=== PATIENT | male | born 1955 | race Caucasian/White ===

== ENCOUNTER 2023-03-31 09:36 | Inpatient (IN) | payer MEDICARE, MEDICAID, SELFPAY ==
[2023-03-29 07:46] VITALS: BMI 19.8
[2023-03-31] VITALS (17 sets, daily range): BP systolic 109–190; BP diastolic 60–103; PULSE 72–102; RESP 12–21; TEMP 35.8–36.7; O2SAT 95–99; BMI 19.8
--- NOTE | 2023-03-31 | DI.RAD.S_ITS ---
PROCEDURE: XR LUMBAR SPINE 2-3V INDICATIONS: TLIF L3-4, L4-5, L5-S1 TECHNIQUE: 3 views of the lumbar spine were acquired. COMPARISON: [facility], , -SPINE 2-3 VIEWS, 06/12/2008, 11:11. FINDINGS: Intraoperative fluoroscopic views of pedicular screw and rony fixation. IMPRESSION: Intraoperative fluoroscopic views. Dictated by: Toribio Sanchez M.D. on 03/31/2023 at 16:52 Approved by: Toribio Sanchez M.D. on 03/31/2023 at 16:53
[2023-03-31] MEDS: LACTATED RINGERS 1,000 ML 42 ML IV ×2 (11:12→14:37)
--- NOTE | 2023-03-31 11:27 | PM.PREOP ---
Pre-operative Note COVID-19 Criteria for continued procedure: Expected advancement of disease process, Possibility delay results in more complex future surgery or treatment, Increased loss of function, Continuing or worsening of significant or severe pain, Deterioration of the patient's condition or overall health and Delay expected to result in less-positive ultimate med/surg outcome Interval Note History & Physical reviewed/Exam performed by Physician: Yes Changes to H&P: No
[2023-03-31] MEDS: OXYCODONE IR 5 MG TABLET PO ×3 (12:02→18:15)
[2023-03-31] MEDS: CYCLOBENZAPRINE 10 MG TABLET 5 MG PO ×2 (12:02→20:27)
[2023-03-31] MEDS: CEFAZOLIN 2 GM/100 ML PREMIX 100 ML IV ×3 (12:36→22:39)
--- NOTE | 2023-03-31 13:08 | SUR.OPER ---
Prone on spine table, head in foam head support, padded chest and pelvic supports, gel pad at knees, lower legs supported by pillows; nipples, genitalia and toes free of pressure, arms secured on foam padded arm boards at <90 degrees abduction. Tape over blanket at thigh secured to table.
[2023-03-31] MEDS: ACETAMINOPHEN IV 1,000 MG/100 ML VIAL 400 MG IV (13:10)
[2023-03-31] MEDS: BUPIVACAINE LIPOSOME 266 MG/20 ML VIAL INJ (13:47)
[2023-03-31] MEDS: BUPIVACAINE 0.25% (PF) 60 ML, EPINEPHrine 0.15 MG INJ (13:51)
--- NOTE | 2023-03-31 16:48 | P.OP_ITS ---
Operative Date/Time/Diagnoses Date of procedure: 03/31/23 Time of procedure: 12:15 Pre-op diagnosis: 1. Lumbar scoliosis 2. Lumbar spondylolisthesis 3. Lumbar spinal stenosis with neurogenic claudication Post-op diagnosis: same Procedure & Clinicians Procedure: 1. L3-4, L4-5, L5-S1 Postero-lateral and posterior interbody fusion 2. L3-4, L4-5, L5-S1 interbody cage placement. 3. L3-4, L4-5, L5-S1 decompressive laminectomy with bilateral facetecomies 4. L3-4, L4-5, L5-S1 Posterior segmental instrumentation 5. Pierpont of bone marrow from iliac crest 6. Utilization of microsurgical technique and operating microscope 7. Utilization of robotic assisted navigation Same procedure as scheduled: Yes Indications: Patient has been having chronic back pain and worsening lumbar radiculopathy and symptoms of neurogenic claudication. Patient failed multiple conservative management with worsening pain weakness and numbness in his lower extremity. Patient has been having difficulty performing activity of daily living. After discussing risks benefits of treatment options, patient elected proceed with surgery. Surgeon: Brit Eisenberg Security Assessor: Radha Marin Click Yes if Unassisted: No Anesthesia Type: General Operative Notes Closure Type: primary Specimen(s): none sent Prosthetic devices, grafts, tissues, transplants, or devices: Globus CREO MIS screws, Rise cages Applied: catheter Estimated Blood Loss (mL): 350 Blood products transfused: none Procedure in detail: Patient was seen in the preoperative area. Risks and benefits of the surgery was discussed with the patient. Informed consent was obtained from the patient and placed in the chart. Surgical site was marked. Patient was taken to the operative room. General anesthesia was administered. Prophylactic antibiotic was given to the patient less than 30 min before the incision was made. Patient was placed into a prone position on the Diallo table. Patient's back was then prepped and draped in the sterile fashion. Time-out was performed at this time. After patient was prepped and draped, patient's PSIS was palpated and marked bilaterally. Small 1 cm incision was made over the PSIS for placement of the reference probes. Two trocar was placed into the PSIS 1 on each side. The reference probe was attached to the trocar of the reference apparatus. At this time the C-arm imaging was used to confirm AP and lateral of L3-4, L4- L5, L5-S1 vertebrae and merged the C-arm imaging using the Study2gether robotic navigation system with the CT of the lumbar spine. After successful merging was completed and confirmed, skin marker was used to natalie out the skin incision using the Study2gether robotic arm. Bilateral incision was made at this time. Pre templated trajectory was used and guided using the Study2gether robotic navigation system for bilateral L3, L4, L5, S1 pedicle screw placement. This was done by using the robotic arm to guide the high-speed bur to make a cortical entry point. Next a drill was placed also using the robotic arm and guided using the navigation system drilling partially through bilateral L3, L4, L5 and S1 pedicles. Next L3, L4, L5, S1 pedicle screws it was pre templated and measured was placed onto the power driver education road instructor and inserted into the pedicles bilaterally. After all 8 screws were placed C-arm imaging was taken of both AP and lateral to confirm the placement. Excellent placement of the screws were confirmed and a matched precisely with the pre planned screw placement using the navigation system. MARs retractor was inserted using [employer] guidence. Globus MARS retractors was placed inside the incision and docked onto the L3, L4 and L5 lamina. Using microsurgical technique and operating microscope, a L3, L4, L5 laminectomy and L3-4, L4-5, L5-S1 facetectomy was performed using a Kerrison rongeur. The laminectomy and facetectomy was performed in order to decompress patient's cauda equina as well as the nerve roots exiting at the L3-4, L4-5, L5- S1 level. Patient was found have severe lateral recess and neural foramen stenosis which was fully decompressed after the laminectomy facetectomy. More than 75% of the facets were removed during the process of decompression rendering L3-4, L4-5, L5-S1 level grossly unstable and required a fusion procedure at the same time. The disc space at L3-4, L4-5, L5-S1 was identified, and a total diskectomy was performed at L3-4, L4-5, L5-S1 level. The endplates were decorticated using a rasp and shaver. The total diskectomy and decortication was performed at L3-4, L4-5, L5-S1 level in order to to accomplish a L3-4, L4-5, L5-S1 fusion. The local bone from the laminectomy and facetectomy was saved for local bone grafting. After the total diskectomy and decortication was completed, Trifecta bone graft material was combined with local bone that was harvested earlier. At this time, a separate skin is incision was made over the iliac crest. A Jamshidi needle was inserted into the iliac crest through a separate skin incision. 5 cc of bone marrow aspiration was obtained through the separate skin incision using a Jamshidi needle from the iliac crest. The bone marrow aspiration was combined with local bone and the Trifecta bone grafting material. The bone grafting material was placed into the L3-4, L4-5, L5-S1 interbody space along with a expandable cage. The cage was expanded to its maximum height using the torque limiting screwdriver. The disc preparation as well as the cage insertion were also performed under navigation guidance. After the cage was placed, AP and lateral C-arm imaging was taken to confirm placement of the cage and excellent position was confirmed. Globus MARS retractor was inserted and docked onto the L3-4, L4-5, L5-S1 posterolateral gutter on the right side. Using the power drill, posterior-l ateral decortication was performed at L3-4, L4-5, L5-S1 level until bleeding cortical bone was identified. The remaining bone grafting material was placed into the L3-4, L4-5, L5-S1 posterior lateral gutter he order to accomplish posterolateral fusion at the L3-4, L4-5, L5-S1 level. At this time the tulips were attached to the L3, L4, L5, S1 pedicle screw shanks. After measuring the length of the rods, they were inserted into the tulips of the pedicle screws and locked in place using locking caps and torque limiting screwdriver bilaterally. Total 6 caps and 2 titanium rods was used in order to complete the posterior instrumentation construct. After all the hardware was placed, and confirmed with AP and lateral C-arm imaging, the wound was then irrigated with sterile normal saline and packed with Ray-Jurgen gauze for 3 min to accomplish hemostasis. After the gauze was removed the deep fascia was closed with #1 Vicryl suture. The subcutaneous layer was closed with 2-0 Vicryl. The skin was closed with skin angela. Patient tolerated the procedure well. There were no complications. The Operation could not have been safely performed without compromising the technical result or length of the procedure, without the assistance of a skilled human resources assistant. The human resources assistant was medically necessary for proper positioning, retraction and manipulation of instruments, proper exposure, surgical preparation, and manipulation of tissue. Neuro monitoring system was used to monitor patient's neurologic status throughout entire procedure. There was no disturbance of the neural monitoring signals throughout the case. Complications: none Post-operative Condition: stable Disposition: PACU Plan for aftercare: Admit to inpatient hospital
[2023-03-31] MEDS: HYDROMORPHONE 2 MG INJ IV ×4 (17:16→17:37)
[2023-03-31] MEDS: hydrOXYzine pamoate 25 MG CAPSULE 50 MG PO (17:18)
[2023-03-31] MEDS: ACETAMINOPHEN 325 MG TABLET 650 MG PO (18:52)
[2023-03-31] MEDS: LACTATED RINGERS 1,000 ML 125 ML IV (18:52)
[2023-03-31] MEDS: HYDROMORPHONE 0.5 MG INJ IV ×3 (18:52→23:22)
--- NOTE | 2023-03-31 19:16 | PC.NURSE ---
Pt arrived from PACU at 1835, A&Ox4, hypertensive but otherwise VSS on 2L O2. C/o 8/10 pain to low back, PRN tylenol and dilaudid administered per NOV. Gauze dressing to low back c/d/i. CMS at baseline, n/t to all extremities. Lung sounds cta, bowel sounds hypoactive. Pt and family oriented to room and call light, SCDs on, bed in low position.
[2023-03-31] MEDS: TAMSULOSIN 0.4 MG CAPSULE PO (20:26)
[2023-03-31] MEDS: GABAPENTIN 400 MG CAPSULE 1200 MG PO (20:26)
[2023-03-31] MEDS: DOCUSATE 100 MG CAPSULE PO (20:27)
[2023-03-31] MEDS: OXYCODONE ER 10 MG TAB PO (20:27)
[2023-03-31] MEDS: SENNOSIDES 8.6 MG TABLET 17.2 MG PO (20:27)
[2023-03-31] MEDS: LOSARTAN 50 MG TABLET PO (20:28)
[2023-03-31] MEDS: MEMANTINE HCL 5 MG TABLET 10 MG PO (20:28)
[2023-03-31] MEDS: hydrOXYzine pamoate 25 MG CAPSULE PO (22:38)
[2023-03-31] MEDS: OXYCODONE IR 10 MG TABLET PO (22:38)
[2023-03-31] MEDS: ONDANSETRON 4 MG/2 ML INJ IV (22:47)
[2023-04-01] VITALS (7 sets, daily range): BP systolic 106–156; BP diastolic 61–84; PULSE 85–100; RESP 18–20; TEMP 35.8–36.6; O2SAT 97–100
[2023-04-01] MEDS: HYDROMORPHONE 0.5 MG INJ IV ×3 (01:49→06:16)
[2023-04-01] MEDS: LACTATED RINGERS 1,000 ML 125 ML IV (01:53)
[2023-04-01] MEDS: LEVOTHYROXINE 88 MCG TABLET PO (05:32)
[2023-04-01] MEDS: PANTOPRAZOLE DR 20 MG TABLET PO (05:32)
[2023-04-01] MEDS: OXYCODONE IR 10 MG TABLET PO (05:32)
[2023-04-01 06:24] LABS: Hematocrit 34.1 % (41-53)
--- NOTE | 2023-04-01 06:55 | PM.PNPO.1 ---
Subjective Subjective Date Patient Seen: 04/01/23 Time Patient Seen: 06:55 Interval history: Pt sitting up in bed, comfortable. Had some nausea last night upon arrival to room, but feeling better now. Has not been OOB since surgery. C/o low back pain and return of neuropathic 'boots of fire' pain to feet. Takes oxycodone 15mg TID and gabapentin 1200mg TID at baseline. Exam Vital Signs (past 8 hours): - 04/01/23 01:43 04/01/23 05:12 Temperature 97.8 F 96.4 F L Pulse Rate 94 H 100 H Respiratory Rate 20 20 Blood Pressure 106/63 120/84 Pulse Oximetry 97 100 Oxygen Flow Rate 0 0 Oxygen Delivery Method Room Air Oxygen Flow Rate 0 Narrative Exam Narrative: 5/5 strength in hip flexors, quadriceps, hamstrings, DF, PF, EHL bilaterally. Sensation to light touch intact throughout BLE. Calves soft, compressible, nontender and without palpable cords or masses. Dressing placed intraoperatively intact and with bloody drainage on left. Objective Labs 04/01/23 05:56 Labs: Laboratory Results - last 24 hr 04/01/23 05:56 Hgb 12.0 L Hct 34.1 L PFSH Medical History (Updated 04/01/23 @ 06:58 by Radha Marin PA-C) ADHD Alcoholism Anxiety Arthritis Back pain Bipolar disorder BPH (benign prostatic hyperplasia) Cancer of tonsillar fossa (~2016) Depression Difficulty swallowing Diverticulosis Eating disorder GERD (gastroesophageal reflux disease) Hearing impaired HTN (hypertension) Hypothyroid LAFB (left anterior fascicular block) Memory deficit Neuropathy Osteoarthritis Pancreatitis (1996) Psoriasis RBBB (right bundle branch block) Sciatica Surgical History (Updated 04/01/23 @ 06:58 by Radha Marin PA-C) History of carpal tunnel release History of surgery History of total left hip replacement Hx of arthroscopy of right knee Hx of bilateral cataract extraction Hx of colonoscopy Hx of cornea transplant Hx of hernia repair S/P percutaneous endoscopic gastrostomy (PEG) tube placement (05/02/19) Social History household members: spouse Smoking Status: Former smoker alcohol intake: former Assessment & Plan Post-op Assessment and plan (1) S/P lumbar fusion: Assessment and Plan narrative: Mobilize w/ PT today. Pts son is in town for the next month to help him. Anticipate discharge home in next 1-2 days depending on progress w/ PT. (2) Acute postoperative anemia due to expected blood loss: Assessment and Plan narrative: Asymptomatic, no intervention needed at this time. (3) Opioid dependence with current use: Assessment and Plan narrative: Will change meds to reflect baseline home dosing and add oxycodone as needed. Postoperative Procedures: Procedures Operation Date: 03/31/23 11:45 Actual Procedure Side Surgeon p L3-4, L4-5, L5-S1 TRANSFORAMINAL LUMBAR INTERBODY FUSION WITH POSTERIOR INSTRUMENTATION; ROBOT Brit Eisenberg MD Postoperative day: 1 Quality VTE Deep Vein Thrombosis/Pulmonary Embolism Present on Admission: No
[2023-04-01] MEDS: OXYCODONE IR 5 MG TABLET 15 MG PO ×3 (08:16→21:20)
[2023-04-01] MEDS: CEFAZOLIN 2 GM/100 ML PREMIX 100 ML IV (08:23)
[2023-04-01] MEDS: CYCLOBENZAPRINE 10 MG TABLET 5 MG PO ×3 (08:24→21:18)
[2023-04-01] MEDS: hydroCHLOROthiazide 25 MG TABLET 12.5 MG PO (08:24)
[2023-04-01] MEDS: DOCUSATE 100 MG CAPSULE PO ×2 (08:25→21:19)
[2023-04-01] MEDS: GABAPENTIN 400 MG CAPSULE 1200 MG PO ×3 (08:25→21:17)
[2023-04-01] MEDS: ACETAMINOPHEN 325 MG TABLET 650 MG PO (08:25)
[2023-04-01] MEDS: ONDANSETRON 4 MG/2 ML INJ IV ×2 (09:53→15:24)
[2023-04-01] MEDS: MEMANTINE HCL 5 MG TABLET 10 MG PO ×2 (09:53→21:17)
--- NOTE | 2023-04-01 11:15 | PT.IIE ---
Current Diagnoses Acute posthemorrhagic anemia (03/31/23) Opioid dependence, uncomplicated (03/31/23) Spondylolisthesis, lumbar region (03/31/23) Spinal stenosis, lumbar region with neurogenic claudication (03/31/23) Arthrodesis status (03/31/23) Surgery Performed Operation Date: 03/31/23 11:45 Actual Procedures p L3-4, L4-5, L5-S1 TRANSFORAMINAL LUMBAR INTERBODY FUSION WITH POSTERIOR INSTRUMENTATION; GULSHAN - Brit Eisenberg MD Surgical History (Last Updated 03/23/23 @ 12:00 by Kylie Loving RN) History of carpal tunnel release History of surgery History of total left hip replacement Hx of arthroscopy of right knee Hx of bilateral cataract extraction Hx of colonoscopy Hx of cornea transplant Hx of hernia repair S/P percutaneous endoscopic gastrostomy (PEG) tube placement (05/02/19) Medical History (Last Updated 03/29/23 @ 10:49 by Kylie Loving RN) ADHD Alcoholism Anxiety Arthritis Back pain Bipolar disorder BPH (benign prostatic hyperplasia) Cancer of tonsillar fossa (~2016) Depression Difficulty swallowing Diverticulosis Eating disorder GERD (gastroesophageal reflux disease) Hearing impaired HTN (hypertension) Hypothyroid LAFB (left anterior fascicular block) Memory deficit Neuropathy Osteoarthritis Pancreatitis (1996) Psoriasis RBBB (right bundle branch block) Sciatica Physical Therapy Inpatient Evaluation/Re-Eval M1 PT/OT-IP Prior Functional Status Start: 04/01/23 13:25 Freq: NEEDED Status: Active Protocol: Document 04/01/23 11:15 AB (Rec: 04/01/23 13:33 AB [id number]) Medical Review Prior Functional Status Medical History Reviewed Yes Communication able to make needs known Mobility and Gait pt stated that he is modified independent with all mobilities without AD but occasional use of SPC indoors; uses SPC for outdoor mobility Social History Household Members spouse Living Arrangements House Number of Floors (Floors) Two Floors Number of Stairs To Enter/Railing? pt stays on main level of the house has 2 steps R rail to enter Home Environment Standard Height Toilet,Tub/ Shower Home Equipment Front Wheel Walker,Four Wheel Walker,Straight Cane,Shower Seat with Backrest,Hand Held Shower,Grab Bars In Shower Additional Social History Comment stated that his son will stay with im for 1 month to assist him M2 PT-IP Current Condition Start: 04/01/23 13:25 Freq: NEEDED Status: Active Protocol: Document 04/01/23 11:15 AB (Rec: 04/01/23 13:33 AB [email or web address]) Physical Therapy Current Condition Current Condition Evaluation Date 04/01/23 Treatment Diagnosis s/p L3-4,4-5, L5S1 TLIF; difficulty in walking Onset Date 03/31/23 M3 PT-IP Subjective Start: 04/01/23 13:25 Freq: NEEDED Status: Active Protocol: Document 04/01/23 11:15 AB (Rec: 04/01/23 13:33 AB [email or web address]) Subjective Physical Therapy Visit Type Type Initial Evaluation Visit Start Time 11:15 Visit Stop Time 11:48 Total Visit Minutes 33 Number of MARSHMALLOW MAKER Visits 0 Physical Therapy Visit Comments Patient Comments agreeable to do PT Therapy Pain Assessment Pain When Pain Assessed At Rest Pain Present Pain Present Pain Reported Location Back Intensity 8 Scale Used Numeric (0 - 10) Pain Management Techniques Distraction,Modification of Treatment,Re-positioning, Timing of Activity with Medications M4 PT-IP Mobility and Gait Start: 04/01/23 13:25 Freq: NEEDED Status: Active Protocol: Document 04/01/23 11:15 AB (Rec: 04/01/23 13:33 AB [email or web address]) PT-Bed Mobility Assessment Rolling Type of Rolling Log Rolling Level of Assist Standby Assistance Supine to Sit Supine to Sit Standby Assistance PT-Transfer Assessment Sit to and From Stand Sit to and from Stand Contact Guard Assistance,1 Person Assistance,Use of Upper Extremities Equipment Transfer Assistive Device Gait Belt,Front Wheeled Walker Orthotic/Prosthetic Devices or Brace: No Transfers Transfer Destination Chair Transfer Technique ambulated Transfer Ability Level of Assist Contact Guard Assistance,1 Person Assistance,Use of Upper Extremities Comments Mobility Comments educated on back precautions and log roll bed mobility. pt completed log roll supine to sit SBA. able to sit on EOB SBA. completed sit to stand CGA and ambulated in room using FWW ~ 40 ft CGA. pt agreeable to sit up on the chair. positioned on the chair. call light and table placed within reach. Gait Assessment Gait Gait Assistance Required: Contact Guard Assist,1 Person Assist Distance (Feet) 40 Able to Maintain Weight Bearing Status Yes During Gait Assistive Devices Assistive Device Gait Belt,Front Wheeled Walker Orthotic/Prosthetic Devices or Brace: No Gait Deviations General Gait Pattern Decreased Stride Length, Decreased Feet Clearance, Narrow Based Gait Factors Limiting Gait Function Factors Limiting Gait Function Decreased Activity Tolerance, Decreased Strength,Limited Range of Motion,Pain,Poor Balance,Poor Safety Awareness PT-Balance Assessment Sitting Balance and Reactions Static Sitting Balance Ability Normal Dynamic Sitting Balance Ability Good Standing Balance and Reactions Static Standing Balance Ability Fair Dynamic Standing Balance Ability Fair Device Used FWW M5 PT-IP Objective Assessments Start: 04/01/23 13:25 Freq: NEEDED Status: Active Protocol: Document 04/01/23 11:15 AB (Rec: 04/01/23 13:33 AB [email or web address]) Orientation Orientation/Cognition Level of Alertness Alert Orientation Name,Place,Situation Language Function Ability No Deficits Noted Safety Awareness Understands Safety Issues Memory Description No Deficits Noted Gross Range of Motion Lower Extremity ROM Assessment Within Functional Limits Strength Lower Extremity Strength Assessment Left Impaired Hip 3+/5 Knee 4-/5 Coordination Assessment Gross Coordination Gross Coordination WNL Muscle Tone Muscle Tone WNL Yes M6 PT-IP Treatment Start: 04/01/23 13:25 Freq: NEEDED Status: Active Protocol: Document 04/01/23 11:15 AB (Rec: 04/01/23 13:33 AB [email or web address]) Physical Therapy Treatment Education Education Provided Precautions,Weight Bearing Status,Post-Op Packet,Safety M7 PT-IP Assessment and Plan Start: 04/01/23 13:25 Freq: NEEDED Status: Active Protocol: Document 04/01/23 11:15 AB (Rec: 04/01/23 13:33 AB [email or web address]) PT Summary Assessment and Plan Potential Rehabilitation Potential Fair Status of Condition at Evaluation Evolving Summary Impairments Pain,ROM,Strength,Balance, Coordination,Sensation,Tone, Cognition,Bed Mobility, Transfers,Gait,Activity Tolerance Assessment Summary Pt s/p L3-4, L4-5, L5S1 TLIF POD1. pt c/o increase pain of 8/10 but able to ambulate using FWW ~ 40 ft CGA. pt plans to go home with family to assist him. will conduct caregiver training when appropriate as well as stair climbing training. will continue to assess. Goals Bed Mobility Goal Independent Transfer Goal Independent,Front Wheeled Walker Gait Goal Independent,Front Wheel Walker Gait Distance 200 Other Goals up/down 2 steps R rail ascending SBA Days to Meet Goals 5 Frequency of Treatment Frequency Of Treatment Twice a Day Treatment Plan Physical Therapy Treatment Plan Bed Mobility Training,Transfer Training,Gait Training, Therapeutic Exercise,Balance Retraining,Post Op Education, Discharge Planning,Hot or Cold Pack,Neuromuscular Re-ed, Coordination Retraining,Manual Therapy Precautions Lumbar Precautions Log Roll,No Twisting,Limit Bending,Lifting Restriction of 10 lbs,Gait Belt above Incisional Area Recommendations To Nursing Amount of Assist Needed 1 Person Assist Discharge Recommendations PT Discharge Recommendations Home with 05/04 Assist Available,Home Health Transportation Needs at Discharge Private Vehicle,Wheelchair/ Cabulance
--- NOTE | 2023-04-01 12:19 | PC.NURSE ---
Assess- Patient was upset this morning because he didnt get his medication at 0600. 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 Patient was really in pain to his lower back and did apologize for his behavior. Explained to him that it was fine and that he had a big surgery. Given 15mg of po oxycodone, his gabapentin, and some tylenol. This has been helpful for patients pain. He is sitting up in the chair and appears to be more comfortable at this time. States that he had a hx of throat cancer and doesnt sleep well since his chemotherapy. He also does not eat alot and perfers to drink ensures.
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
--- NOTE | 2023-04-01 14:15 | OT.IP.EVAL ---
Current Diagnoses Acute posthemorrhagic anemia (03/31/23) Opioid dependence, uncomplicated (03/31/23) Spondylolisthesis, lumbar region (03/31/23) Spinal stenosis, lumbar region with neurogenic claudication (03/31/23) Arthrodesis status (03/31/23) Surgery Performed Operation Date: 03/31/23 11:45 Actual Procedures p L3-4, L4-5, L5-S1 TRANSFORAMINAL LUMBAR INTERBODY FUSION WITH POSTERIOR INSTRUMENTATION; GULSHAN - Brit Eisenberg MD Past Medical History (Last Updated 03/29/23 @ 10:49 by Kylie Loving, JOSETTE) ADHD Alcoholism Anxiety Arthritis Back pain Bipolar disorder BPH (benign prostatic hyperplasia) Cancer of tonsillar fossa (~2017) Depression Difficulty swallowing Diverticulosis Eating disorder GERD (gastroesophageal reflux disease) Hearing impaired HTN (hypertension) Hypothyroid LAFB (left anterior fascicular block) Memory deficit Neuropathy Osteoarthritis Pancreatitis (1996) Psoriasis RBBB (right bundle branch block) Sciatica Surgical History (Last Updated 03/23/23 @ 12:00 by Kylie Loving, JOSETTE) History of carpal tunnel release History of surgery History of total left hip replacement Hx of arthroscopy of right knee Hx of bilateral cataract extraction Hx of colonoscopy Hx of cornea transplant Hx of hernia repair S/P percutaneous endoscopic gastrostomy (PEG) tube placement (05/02/19) Occupational Therapy Inpatient Evaluation/Re-Eval M1 PT/OT-IP Prior Functional Status Start: 04/01/23 14:45 Freq: NEEDED Status: Active Protocol: Document 04/01/23 13:58 [facility] (Rec: 04/01/23 15:02 [facility] [id number]) Medical Review Prior Functional Status Medical History Reviewed Yes Communication able to make needs known Mobility and Gait pt stated that he is modified independent with all mobilities without AD but occasional use of SPC indoors; uses SPC for outdoor mobility Activities of Daily Living and IADL's Pt states able to do all ADl and IADL needs with increased time. Prior Functional Level (Other details) Pt 's son to come and stay with him for the month to assist. Social History Household Members spouse Living Arrangements House Number of Floors (Floors) Two Floors Number of Stairs To Enter/Railing? pt stays on main level of the house has 2 steps R rail to enter Home Environment Standard Height Toilet,Tub/ Shower Home Equipment Front Wheel Walker,Four Wheel Walker,Straight Cane,Shower Seat with Backrest,Hand Held Shower,Grab Bars In Shower Additional Social History Comment Pt states to sponge off for now. M2 OT-IP Current Condition Start: 04/01/23 14:45 Freq: Status: Active Protocol: Document 04/01/23 13:58 [facility] (Rec: 04/01/23 15:02 [facility] [id number]) Occupational Therapy Current Condition Current Condition Evaluation Date 04/01/23 Treatment Diagnosis S/p L2-5 TLIF Diagnosis Onset Date 03/31/23 Post Operative Precautions Lumbar Precautions Log Roll,No Twisting,Limit Bending,Lifting Restriction of 10 lbs,Gait Belt above Incisional Area M3 OT- IP Subjective and Pain Start: 04/01/23 14:45 Freq: Status: Active Protocol: Document 04/01/23 13:58 [facility] (Rec: 04/01/23 15:02 [facility] [id number]) OT- Subjective Occupational Therapy Visit Type Type Initial Evaluation Visit Start Time 13:58 Visit Stop Time 14:15 Total Visit Minutes 17 Occupational Therapy Visit Comments Patient Comments Pt agreed to get up. Patient/Caregiver Goals TO go home. OT Pain Assessment Pain When Pain Assessed At Rest Pain Present Pain Present Pain Reported Location Back Intensity 8 Scale Used Numeric (0 - 10) M4 OT- IP ADL's Start: 04/01/23 14:45 Freq: Status: Active Protocol: Document 04/01/23 13:58 [facility] (Rec: 04/01/23 15:02 [facility] [id number]) OT [id number] Comments OT Self-Feeding Comments Pt mainly just drinks liquids per pt. OT ADL-Oral Care Comments Oral Care Comments Educated to pt to best hinge at his hips or spit into a cup to best follow his back precautions. OT ADL-Dressing General Eval Lower Body Dressing Ability Moderate Assistance Comments OT Dressing Comments MODA to assist to get his slippers on over his feet. Pt states has perinatology physician and sock aid at home. OT ADL-Toileting General Evaluation Toileting Ability Total Assistance Comments OT Toileting Comments Lemus in place. Pt able demonstrate how to comfortably reach while standing to be able to wipe. Suggested to use urinal at night. OT ADL-Bathing Comments OT Bathing Comments NOt performed. M5 OT- IP IADL's Start: 04/01/23 14:45 Freq: Status: Active Protocol: Document 04/01/23 13:58 [facility] (Rec: 04/01/23 15:02 [facility] [id number]) OT-Instrumental Activities of Daily Living Deficits IADL Deficits Identified Deficits Home Safety Awareness Awareness of Need for Assistance at Home Good Awareness Ability to Problem Solve Emergency Able to Problem Solve Situations M6 OT- IP Functional Cognition Start: 04/01/23 14:45 Freq: Status: Active Protocol: Document 04/01/23 13:58 [facility] (Rec: 04/01/23 15:02 [facility] [id number]) Cognitive Factors Limiting Selfcare Function Cognitive Ability Level of Alertness Alert Patient Orientation Name,Place,Situation Attention Span Ability Capable of Focused Attention, Capable of Sustained Attention Ability to Follow Commands Able to Follow One Step Commands Safety Awareness Decreased Recall of Precautions,Decreased Ability to Apply Precautions Cognitive Comments Cognitive Assessment Comments Pt needing cues to remember all back precautions and reminder to keep his hand forwards for log rolling to be sure not to twist. VC to keep the FWW in front of him. VC to push up from the bed to stand. OT- Vision and Hearing OT- Hearing Assessment OT- Hearing Assessment Hearing Impaired,Use of Hearing Aids OT- Vision Assessment Visual Acuity Glasses All The Time M7 OT- IP Mobility and Balance Start: 04/01/23 14:45 Freq: Status: Active Protocol: Document 04/01/23 13:58 [facility] (Rec: 04/01/23 15:02 [facility] [id number]) OT- Bed Mobility Assessment Supine to Sit Supine to Sit Assist Standby Assistance Sit to Supine Sit to Supine Assist Standby Assistance OT-Transfer Assessment Sit to and From Stand Sit to and from Stand Standby Assistance,Contact Guard Assistance Transfers Transfer Ability Standby Assistance,Contact Guard Assistance Comments Mobility Comments CGA/SBA with FWW as at times a little unsteady on his feet. OT- Balance Assessment Sitting Balance and Reactions Static Sitting Balance Ability Good Dynamic Sitting Balance Ability Good Standing Balance and Reactions Static Standing Balance Ability Fair Dynamic Standing Balance Ability Fair M9 OT- IP Assessment and Plan Start: 04/01/23 14:45 Freq: Status: Active Protocol: Document 04/01/23 13:58 [facility] (Rec: 04/01/23 15:02 [facility] [id number]) OT Summary Assessment and Plan Potential Rehabilitation Potential Good Analytic Complexity at Evaluation Low Summary OT Impairments Pain,Range of Motion,Balance, Functional Mobility,Dressing, Toileting,Bathing,Toilet Transfers,Shower Transfers, Activity Tolerance Progress Towards Goals Progressing Toward Goals Assessment Summary Pt low complexity and main barriers are steps, pain, needing assist for LB dressing needs and a little unsteady on his feet. Pt looking to go home with assist from his son for the next month when medically stable. Goals Grooming Goal Independent Dressing Goal Independent Toileting Goal Independent Bathing Goal Independent Toilet Transfer Goal Independent Shower Transfer Goal Independent Days to Meet Goals 7 Frequency of Treatment Frequency Of Treatment Once a Day Treatment Plan OT Treatment Plan ADL Training,Functional Mobility,Patient/Family Education,Discharge Planning Other Treatment Recommendations and Next shower Treatment Focus Discharge Recommendations OT Discharge Recommendations Home with Assistance Home Equipment Needs [facility] Transportation Needs at Discharge Private Vehicle
--- NOTE | 2023-04-01 16:05 | PT.IPTN ---
Current Diagnoses Acute posthemorrhagic anemia (03/31/23) Opioid dependence, uncomplicated (03/31/23) Spondylolisthesis, lumbar region (03/31/23) Spinal stenosis, lumbar region with neurogenic claudication (03/31/23) Arthrodesis status (03/31/23) Surgery Performed Operation Date: 03/31/23 11:45 Actual Procedures p L3-4, L4-5, L5-S1 TRANSFORAMINAL LUMBAR INTERBODY FUSION WITH POSTERIOR INSTRUMENTATION; ROBOT - Brit Eisenberg MD Physical Therapy Treatment Note M2 PT-IP Current Condition Start: 04/01/23 13:25 Freq: NEEDED Status: Active Protocol: Document 04/01/23 11:15 AB (Rec: 04/01/23 13:33 AB [id number]) Physical Therapy Current Condition Current Condition Evaluation Date 04/01/23 Treatment Diagnosis s/p L3-4,4-5, L5S1 TLIF; difficulty in walking Onset Date 03/31/23 M3 PT-IP Subjective Start: 04/01/23 13:25 Freq: NEEDED Status: Active Protocol: Document 04/01/23 16:05 AB (Rec: 04/01/23 16:52 AB [id number]) Subjective Physical Therapy Visit Type Type Treatment Note Visit Start Time 16:05 Visit Stop Time 16:26 Total Visit Minutes 21 Number of PROFESSOR OF ECONOMICS Visits 0 Physical Therapy Visit Comments Patient Comments agreeable to do PT Therapy Pain Assessment Pain When Pain Assessed At Rest Pain Present Pain Present Pain Reported Location Back Intensity 8 Scale Used Numeric (0 - 10) Pain Management Techniques Distraction,Modification of Treatment,Re-positioning, Timing of Activity with Medications M4 PT-IP Mobility and Gait Start: 04/01/23 13:25 Freq: NEEDED Status: Active Protocol: Document 04/01/23 16:05 AB (Rec: 04/01/23 16:52 AB [id number]) PT-Bed Mobility Assessment Rolling Type of Rolling Log Rolling Level of Assist Standby Assistance Supine to Sit Supine to Sit Standby Assistance Sit to Supine Sit to Supine Standby Assistance PT-Transfer Assessment Sit to and From Stand Sit to and from Stand Standby Assistance,1 Person Assistance,Use of Upper Extremities Equipment Transfer Assistive Device Gait Belt,Front Wheeled Walker Orthotic/Prosthetic Devices or Brace: No Comments Mobility Comments completed log roll supine to sit SBA. requested to put pants on and completed sit to stand SBA and able to maintain standing SBA to cGA using fWW for support. ambulated towards the stairs using fWW ~ 150 ft SBA. completed up/down steps using R rail ascending SBA. ambulated back to his room SBA using FWW and requested to go back to bed. completed log roll sit to supine SBA. positioned in bed. call light and table placed within reach. Gait Assessment Gait Gait Assistance Required: Standby Assistance Distance (Feet) 150 Able to Maintain Weight Bearing Status Yes During Gait Assistive Devices Assistive Device Gait Belt,Front Wheeled Walker Orthotic/Prosthetic Devices or Brace: No Gait Deviations General Gait Pattern Antalgic,Decreased Stride Length,Decreased Feet Clearance Factors Limiting Gait Function Factors Limiting Gait Function Decreased Activity Tolerance, Limited Range of Motion,Pain, Poor Balance Stair Climbing Assessment Evaluation Level of Assist On Stairs Standby Assistance,Contact Guard Assistance Devices Stair Climbing Assistive Devices Right Railing Technique/Endurance Stair Climbing Direction Ascend and Descend Stair Climbing Technique Step to Step Number of Steps Climbed 3 Stair Climbing Set # Repetitions (reps) 1 M5 PT-IP Objective Assessments Start: 04/01/23 13:25 Freq: NEEDED Status: Active Protocol: Document 04/01/23 11:15 AB (Rec: 04/01/23 13:33 AB [id number]) Orientation Orientation/Cognition Level of Alertness Alert Orientation Name,Place,Situation Language Function Ability No Deficits Noted Safety Awareness Understands Safety Issues Memory Description No Deficits Noted Gross Range of Motion Lower Extremity ROM Assessment Within Functional Limits Strength Lower Extremity Strength Assessment Left Impaired Hip 3+/5 Knee 4-/5 Coordination Assessment Gross Coordination Gross Coordination WNL Muscle Tone Muscle Tone WNL Yes M6 PT-IP Treatment Start: 04/01/23 13:25 Freq: NEEDED Status: Active Protocol: Document 04/01/23 16:05 AB (Rec: 04/01/23 16:52 AB [id number]) Physical Therapy Treatment Education Education Provided Precautions,Safety M7 PT-IP Assessment and Plan Start: 04/01/23 13:25 Freq: NEEDED Status: Active Protocol: Document 04/01/23 16:05 AB (Rec: 04/01/23 16:52 AB [id number]) PT Summary Assessment and Plan Potential Rehabilitation Potential Good Summary Impairments Pain,ROM,Strength,Balance, Coordination,Sensation,Tone, Cognition,Bed Mobility, Transfers,Gait,Activity Tolerance Progress Towards Goals Progressing Toward Goals Assessment Summary pt requiring SBA to CGA with mobility using FWW and completed stair climbing using R rails ascending SBA. pt plans to go home and will have his family to assist him when needed. pt may go home when medically stable. Goals Bed Mobility Goal Independent Transfer Goal Independent,Front Wheeled Walker Gait Goal Independent,Front Wheel Walker Gait Distance 200 Other Goals up/down 2 steps R rail ascending SBA Days to Meet Goals 5 Frequency of Treatment Frequency Of Treatment Twice a Day Treatment Plan Physical Therapy Treatment Plan Bed Mobility Training,Transfer Training,Gait Training, Therapeutic Exercise,Balance Retraining,Post Op Education, Discharge Planning,Hot or Cold Pack,Neuromuscular Re-ed, Coordination Retraining,Manual Therapy Precautions Lumbar Precautions Log Roll,No Twisting,Limit Bending,Lifting Restriction of 10 lbs,Gait Belt above Incisional Area Recommendations To Nursing Amount of Assist Needed 1 Person Assist Discharge Recommendations PT Discharge Recommendations Home with Assistance Transportation Needs at Discharge Private Vehicle
[2023-04-01] MEDS: SENNOSIDES 8.6 MG TABLET 17.2 MG PO (21:17)
[2023-04-01] MEDS: TAMSULOSIN 0.4 MG CAPSULE PO (21:19)
[2023-04-01] MEDS: LOSARTAN 50 MG TABLET PO (21:20)
[2023-04-02 04:00] VITALS: BP 96/44; PULSE 90; RESP 20; TEMP 36.3; O2SAT 97
[2023-04-02] MEDS: PANTOPRAZOLE DR 20 MG TABLET PO (05:28)
[2023-04-02] MEDS: OXYCODONE IR 5 MG TABLET 15 MG PO (05:28)
[2023-04-02] MEDS: LEVOTHYROXINE 88 MCG TABLET PO (05:28)
[2023-04-02 06:25] VITALS: BP 120/78; PULSE 94
--- NOTE | 2023-04-02 07:45 | P.DS_ITS ---
History of Present Illness History of Present Illness Date Patient Seen: 04/02/23 Time Patient Seen: 07:45 Chief complaint: TLIF w/Robot Narrative: Operative Date/Time/Diagnoses Date of procedure: 03/31/23 Time of procedure: 12:15 Pre-op diagnosis: 1. Lumbar scoliosis 2. Lumbar spondylolisthesis 3. Lumbar spinal stenosis with neurogenic claudication Post-op diagnosis: same Procedure & Clinicians Procedure: 1. L3-4, L4-5, L5-S1 Postero-lateral and posterior interbody fusion 2. L3-4, L4-5, L5-S1 interbody cage placement. 3. L3-4, L4-5, L5-S1 decompressive laminectomy with bilateral facetecomies 4. L3-4, L4-5, L5-S1 Posterior segmental instrumentation 5. [place] of bone marrow from iliac crest 6. Utilization of microsurgical technique and operating microscope 7. Utilization of robotic assisted navigation Same procedure as scheduled: Yes Indications: Patient has been having chronic back pain and worsening lumbar radiculopathy and symptoms of neurogenic claudication. Patient failed multiple conservative management with worsening pain weakness and numbness in his lower extremity.? Patient has been having difficulty performing activity of daily living.? After discussing risks benefits of treatment options, patient elected proceed with surgery. Surgeon: Brit Eisenberg Sales Trader: Radha Marin Click Yes if Unassisted: No Anesthesia Type: General Operative Notes Closure Type: primary Specimen(s): none sent Prosthetic devices, grafts, tissues, transplants, or devices: Globus CREO MIS screws, Rise cages Applied: catheter Estimated Blood Loss (mL): 350 Blood products transfused: none Discharge Providers Provider Date of admission: 03/31/23 09:36 Discharge Date: 04/02/23 Primary care physician: VERONIQUE Burt Consults: 03/23/23 12:27 Consult to Anesthesiology Routine Comment: Consulting Provider: Anesthesiologist Reason for consultation: PAC courtesy re: abnormal pre-op EKG, medical history 03/31/23 18:24 Consult to Occupational Therapy Evaluate & Treat Comment: Physician Instructions: Evaluate and treat Consult to Physical Therapy Evaluate & Treat Comment: Physician Instructions: Evaluate and Treat Discharge provider: Radha Marin PA-C Summary Hospital Course Discharge Diagnosis: Lumbar scoliosis, Lumbar spondylolisthesis, Lumbar spinal stenosis with neurogenic claudication; s/p lumbar fusion Hospital Course: Mr Estes's hospital course was unremarkable. On the morning of POD# 2 he was feeling well and wanted to go home with his spouse and son. He was eating and voiding without difficulty and his pain was well-controlled with oral medication. He was evaluated by PT throughout his stay and felt to be safe for discharge to home. Exam Vital Signs (past 8 hours): - 04/02/23 04:00 04/02/23 06:25 Temperature 97.3 F L Pulse Rate 90 94 H Respiratory Rate 20 Blood Pressure 96/44 L 120/78 Pulse Oximetry 97 Oxygen Flow Rate 0 Oxygen Delivery Method Room Air Oxygen Flow Rate 0 Narrative Exam Narrative: 5/5 strength in hip flexors, quadriceps, hamstrings, DF, PF, EHL bilaterally. Sensation to light touch intact throughout BLE. Calves soft, compressible, nontender and without palpable cords or masses. Dressing placed int raoperatively w/ old, bloody drainage on left. Objective Labs 04/01/23 05:56 [facility] Medical History (Updated 04/01/23 @ 06:58 by Radha Marin PA-C) ADHD Alcoholism Anxiety Arthritis Back pain Bipolar disorder BPH (benign prostatic hyperplasia) Cancer of tonsillar fossa (~2016) Depression Difficulty swallowing Diverticulosis Eating disorder GERD (gastroesophageal reflux disease) Hearing impaired HTN (hypertension) Hypothyroid LAFB (left anterior fascicular block) Memory deficit Neuropathy Osteoarthritis Pancreatitis (1996) Psoriasis RBBB (right bundle branch block) Sciatica Surgical History (Updated 04/01/23 @ 06:58 by Radha Marin PA-C) History of carpal tunnel release History of surgery History of total left hip replacement Hx of arthroscopy of right knee Hx of bilateral cataract extraction Hx of colonoscopy Hx of cornea transplant Hx of hernia repair S/P percutaneous endoscopic gastrostomy (PEG) tube placement (05/02/19) Social History household members: spouse Smoking Status: Former smoker alcohol intake: former Discharge Assessment & Plan Assessment and Plan Assessment: Lumbar scoliosis, Lumbar spondylolisthesis, Lumbar spinal stenosis with neurogenic claudication; s/p lumbar fusion Plan of Treatment: Discharge home. Pt on pain contract for oxycodone 15mg TID from another provider; he will follow up with that provider for baseline pain control and we will prescribe additional oxycodone and hydroxyzine as needed in the acute postop period. F/u in office in 2 weeks as scheduled. Discharge Plan Discharge Plan Patient Disposition: Home Discharge orders & Medications Prescriptions: New acetaminophen 325 mg Tablet 650 mg PO Q6H PRN (Reason: Fever/Mild Pain (1-3)) Qty: 240 0RF docusate sodium 100 mg Capsule 100 mg PO BID PRN (Reason: constipation) Qty: 60 0RF hydroxyzine pamoate 25 mg Capsule 25 mg PO Q4HR PRN (Reason: muscle spasm) Qty: 90 0RF oxycodone 5 mg Tablet 5 mg PO Q4HR PRN (Reason: pain, severe) Qty: 60 0RF Continued levothyroxine 88 mcg Tablet 88 mcg PO DAILY oxycodone-acetaminophen 10-325 mg Tablet 1.5 tab PO Q4H PRN (Reason: Pain) Patient Comments: started weaning 3-4 weeks ago. been taking 1/2 to 1 tab in prep for surgery tamsulosin 0.4 mg Capsule 0.4 mg PO BEDTIME gabapentin 800 mg Tablet 1,200 mg PO TID losartan 100 mg Tablet 50 mg PO BEDTIME cyclobenzaprine 5 mg Tablet 5 mg PO TID memantine 10 mg Tablet 10 mg PO BID hydrochlorothiazide 12.5 mg Tablet 25 mg PO DAILY omeprazole 20 mg Tablet,Delayed Release (Dr/Ec) 20 mg PO DAILY Follow up/Referrals: Anat Mckeon ARNP [Primary Care Provider] - Brit Eisenberg MD [Physician] - As previously scheduled (Follow up with Radha Marin PA-C, on 04/13/2023 @ 3:30 at [facility] in [place].) Diet/Activity/Treatments Diet: Diet as Tolerated Activity: No deep bending or twisting at the waist. No lifting more than 10 pounds. Skin/Wound/Dressing Care Report to your healthcare provider any signs of infection, such as:: chills, fever, night sweats, unusual drainage and unusual redness Dressing: May shower; keep dressing as dry as possible. If dressing becomes wet or dirty, may remove and replace with clean, dry gauze. No bathing or otherwise soaking incisions. Do not apply any creams, lotions, or ointments to incisions. Visit Report/Discharge Packet Instructions: DI for Dehydration -- Adult, DI for Constipation, How to Prevent Falls, DI for Prescription Opioid Use, DI for Taking Pain Medication, How to Monitor Your Blood Pressure at Home, DI for Transforaminal Lumbar Interbody Fusion Stand Alone Forms: Patient Portal/API, Stroke Signs & Symptoms, Surgery Dischar ge Discharge Data Primary Care Provider: Anat Mckeon VTE Deep Vein Thrombosis/Pulmonary Embolism Present on Admission: No
[2023-04-02 08:13] VITALS: BP 76/44; PULSE 89; RESP 16; TEMP 36.4; O2SAT 98
--- NOTE | 2023-04-02 09:08 | PT-IP ANOTE ---
Per nursing pt is orthostatic with symptoms and not appropriate at this time for PT. Will check back in later today.
[2023-04-02] MEDS: LACTATED RINGERS 500 ML IV (09:11)
[2023-04-02] MEDS: CYCLOBENZAPRINE 10 MG TABLET 5 MG PO (09:12)
[2023-04-02] MEDS: GABAPENTIN 400 MG CAPSULE 1200 MG PO (09:12)
[2023-04-02] MEDS: MEMANTINE HCL 5 MG TABLET 10 MG PO (09:12)
[2023-04-02] MEDS: DOCUSATE 100 MG CAPSULE PO (09:12)
[2023-04-02 10:23] VITALS: BP 104/64; PULSE 99
--- NOTE | 2023-04-02 10:32 | PT.IPTN ---
Current Diagnoses Acute posthemorrhagic anemia (03/31/23) Opioid dependence, uncomplicated (03/31/23) Spondylolisthesis, lumbar region (03/31/23) Spinal stenosis, lumbar region with neurogenic claudication (03/31/23) Arthrodesis status (03/31/23) Surgery Performed Operation Date: 03/31/23 11:45 Actual Procedures p L3-4, L4-5, L5-S1 TRANSFORAMINAL LUMBAR INTERBODY FUSION WITH POSTERIOR INSTRUMENTATION; ROBOT - Brit Eisenberg MD Physical Therapy Treatment Note M2 PT-IP Current Condition Start: 04/01/23 13:25 Freq: NEEDED Status: Active Protocol: Document 04/01/23 11:15 AB (Rec: 04/01/23 13:33 AB [email or web address]) Physical Therapy Current Condition Current Condition Evaluation Date 04/01/23 Treatment Diagnosis s/p L3-4,4-5, L5S1 TLIF; difficulty in walking Onset Date 03/31/23 M3 PT-IP Subjective Start: 04/01/23 13:25 Freq: NEEDED Status: Active Protocol: Document 04/02/23 10:50 TS (Rec: 04/02/23 11:01 TS [email or web address]) Subjective Physical Therapy Visit Type Type Treatment Note Visit Start Time 10:32 Visit Stop Time 10:42 Total Visit Minutes 10 Number of ENDLESS BELT FINISHER Visits 1 Physical Therapy Visit Comments Patient Comments Pt reports feeling much better this morning, agreeable to do PT. M4 PT-IP Mobility and Gait Start: 04/01/23 13:25 Freq: NEEDED Status: Active Protocol: Document 04/02/23 10:50 TS (Rec: 04/02/23 11:01 TS [id number]) PT-Bed Mobility Assessment Rolling Type of Rolling Log Rolling Level of Assist Standby Assistance Supine to Sit Supine to Sit Standby Assistance Sit to Supine Sit to Supine Standby Assistance Scooting Scooting to Edge of Bed Standby Assistance PT-Transfer Assessment Sit to and From Stand Sit to and from Stand Standby Assistance,1 Person Assistance,Use of Upper Extremities Equipment Transfer Assistive Device Gait Belt,Front Wheeled Walker Orthotic/Prosthetic Devices or Brace: No Comments Mobility Comments Pt recalled 3/3 spinal precautions prior to mobility. He is SBA with logroll and demonstrated good carryover of sequencing. He performed sit to stand SBA with FWW, had no posterior leaning. He ambulated ~200' SBa with step thru gait, no buckling or LOB. He performed stairs SBA step over step with BUE handrail assist. Gait Assessment Gait Gait Assistance Required: Standby Assistance Distance (Feet) 200 Able to Maintain Weight Bearing Status Yes During Gait Assistive Devices Assistive Device Gait Belt,Front Wheeled Walker Orthotic/Prosthetic Devices or Brace: No Gait Deviations General Gait Pattern Antalgic,Decreased Stride Length,Decreased Feet Clearance Factors Limiting Gait Function Factors Limiting Gait Function Decreased Activity Tolerance, Limited Range of Motion,Pain, Poor Balance Comments Gait Comments See mobility comments. Stair Climbing Assessment Evaluation Level of Assist On Stairs Standby Assistance,Contact Guard Assistance Devices Stair Climbing Assistive Devices Left Railing,Right Railing Technique/Endurance Stair Climbing Direction Ascend and Descend Stair Climbing Technique Step to Step Number of Steps Climbed 3 Stair Climbing Set # Repetitions (reps) 1 Comments Stair Climbing Comments See mobility comments. PT-Balance Assessment Sitting Balance and Reactions Static Sitting Balance Ability Normal Dynamic Sitting Balance Ability Good Standing Balance and Reactions Static Standing Balance Ability Good Dynamic Standing Balance Ability Good Device Used FWW M5 PT-IP Objective Assessments Start: 04/01/23 13:25 Freq: NEEDED Status: Active Protocol: Document 04/01/23 11:15 AB (Rec: 04/01/23 13:33 AB [email or web address]) Orientation Orientation/Cognition Level of Alertness Alert Orientation Name,Place,Situation Language Function Ability No Deficits Noted Safety Awareness Understands Safety Issues Memory Description No Deficits Noted Gross Range of Motion Lower Extremity ROM Assessment Within Functional Limits Strength Lower Extremity Strength Assessment Left Impaired Hip 3+/5 Knee 4-/5 Coordination Assessment Gross Coordination Gross Coordination WNL Muscle Tone Muscle Tone WNL Yes M6 PT-IP Treatment Start: 04/01/23 13:25 Freq: NEEDED Status: Active Protocol: Document 04/02/23 10:50 TS (Rec: 04/02/23 11:01 TS [id number]) Physical Therapy Treatment Education Education Provided Precautions,Safety M7 PT-IP Assessment and Plan Start: 04/01/23 13:25 Freq: NEEDED Status: Active Protocol: Document 04/02/23 10:50 TS (Rec: 04/02/23 11:01 TS [id number]) PT Summary Assessment and Plan Potential Rehabilitation Potential Good Summary Impairments Pain,ROM,Strength,Balance, Coordination,Sensation,Tone, Cognition,Bed Mobility, Transfers,Gait,Activity Tolerance Progress Towards Goals Progressing Toward Goals Assessment Summary Pt is SBA for all mobility this session and required no cueing for spinal precautions. He progressed his ambulation to SBA 200' with step thru gait, had no buckling or LOB. He performed stairs SBA step over step with BUE handrail assist. PT is recommending home with assist from family. Goals Bed Mobility Goal Independent Transfer Goal Independent,Front Wheeled Walker Gait Goal Independent,Front Wheel Walker Gait Distance 200 Other Goals up/down 2 steps R rail ascending SBA Days to Meet Goals 5 Frequency of Treatment Frequency Of Treatment Twice a Day Treatment Plan Physical Therapy Treatment Plan Bed Mobility Training,Transfer Training,Gait Training, Therapeutic Exercise,Balance Retraining,Post Op Education, Discharge Planning,Hot or Cold Pack,Neuromuscular Re-ed, Coordination Retraining,Manual Therapy Precautions Lumbar Precautions Log Roll,No Twisting,Limit Bending,Lifting Restriction of 10 lbs,Gait Belt above Incisional Area Recommendations To Nursing Amount of Assist Needed Standby Assistance Discharge Recommendations PT Discharge Recommendations Home with Assistance Transportation Needs at Discharge Private Vehicle
--- NOTE | 2023-04-02 11:22 | OT.IPNOTE ---
Attempted to see pt x2 today. Earlier in AM pt was orthostatic. Later in AM, pt working with P.T. and states that he feels confident in his ADLs and doesn't want to do a shower at the hospital. Will hold and continue to follow.
--- NOTE | 2023-04-02 11:37 | DIET.CONS2 ---
Dietary Inpatient Consultation Note Admission Date: 03/31/2023 09:36 67y M admitted for planned TLIF c/robot referred to nutrition for trouble swallowing and dehydration post-op. Pt with soft BPs this morning, received 1L bolus and was able to drink several oral nutrition supplement drinks. Pt has hx stage 4 esophageal cancer treated with surgery, chemo and radiation 6y ago. Pt is considered to be in remission. 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 During the process of his dx and tx, pt lost 50% of his body weight which he has been able to maintain for several years but not increase. Current BMI 19.8 (severe for age). NFPE shows scooping on temples and clavicles and thin, underweight appearance. Pt states he went through extensive speech therapy and knows the tricks and techniques. At home, pt drinks Premier Protein daily which is adequate in protein but inadequate in kcals to support weight repletion. Pt with loss of smell, taste, and removal of some musculature in upper esophagus. Pt's nutrition status also complicated by chronic pain due to back issues which were addressed with this surgery. Nutrition Dx: Severe Chronic Protein Calorie Malnutrition r/t altered GI tract aeb BMI 19.8 (severe for age), pt with stage 4 throat cancer missing some swallow musculature, ONS not meeting kcal needs. Plan: Recc pt switch to higher kcal formula at home to support weight stability and repletion to at least BMI 21. Pt educated on high kcal/ high protein MNT with focus on soft foods. Diet: 03/31/23 Dinner General (Regular) Diet Diet Modifications: Nutrition Percent Meal Consumed 25% 04/01/23 18:27 Percent Meal Consumed 0% 04/01/23 14:20 Percent Meal Consumed 0% 04/01/23 08:56 Electronically Signed by: Emma Ohara 04/02/23 11:37 Clinical Dietitian [id number] [place] [address]
--- NOTE | 2023-04-02 13:13 | PC.NURSE ---
Discharge: Pt want to go home today. This Am bp found to be 76/44 rt, 76/40 lt. Heart rate 90's until up, then 110's. When up is dizzy. Physical therapy reported he was up for about 5 seconds and then pt reported he couldn't make it and laid back down. HCP called in OR. See new orders. Antihypertensive meds held and a IVF bolus was given. After pt received bolus his systolic bp was 100's. Physical therapy came back to work with pt, reported he was able to stand and walk and is safe to go home. Pt has not taken in any food since he arrived at [facility]. He has a hx of throat cancer, had brought in his own ensure because that for the most part is his diet at home. However since his surgery his swallow is worse. Pt reports this is what contributes to his low blood pressure is dehydration. RD notified and came to speak with pt about diet and what he could do with his fluids. Reviewed the bp instruction sheet, follow those parameters, if his bp continues to be low he needs to see his primary care provider. Back dressing changed to cover site. Wound care explained. Dressing is good for 7 days, can shower with it on but no tubs or soaking. His angela are intact, wound edges approximated, no redness or drainage seen. Son present at time of teaching. He will stay with pt and his spouse until he is more mobile. Reviewed d/c packet. Rx was esent. Questions answered to both pt's and sons satisfaction and he feels he can d/c to home safely. He understands if dizziness or low bp gets to the parameters on his instruction sheets he is to seek medical care.
== END 2023-04-02 12:30 | disposition home or self-care (01) | DRG 454 ==
PROVIDERS: Admitting Provider Orthopaedic Surgery Orthopaedic Surgery of the Spine; PCP Nurse Practitioner; Referring Provider Orthopaedic Surgery Orthopaedic Surgery of the Spine; Visit Provider Orthopaedic Surgery Orthopaedic Surgery of the Spine
PROC: 0SG10AJ Fusion of 2 or more Lumbar Vertebral Joints with Interbody Fusion Device, Posterior Approach, Anterior Column, Open Approach (ICD-10-PCS; principal; 2023-03-31 11:45)
DX: M43.16 Spondylolisthesis, lumbar region (principal); F11.20 Opioid dependence, uncomplicated; M48.062 Spinal stenosis, lumbar region with neurogenic claudication; M41.86 Other forms of scoliosis, lumbar region; G62.9 Polyneuropathy, unspecified; E03.9 Hypothyroidism, unspecified; N40.0 Benign prostatic hyperplasia without lower urinary tract symptoms; I10 Essential (primary) hypertension; K21.9 Gastro-esophageal reflux disease without esophagitis; Z87.891 Personal history of nicotine dependence
CPT/HCPCS: 36415; 72100; 76000; 85014; 85018; 97116; 97162; 97165; C1713; C9290; J0131; J0171; J0690; J1100; J1170; J2250; J2405; J2704; J3010